=== PATIENT | female | born 1975 | race American Indian/Alaskan Native ===

== ENCOUNTER 2017-01-24 10:48 | Emergency (ER) | payer OTHER ==
[2017-01-24 11:12] VITALS: O2SAT 100
[2017-01-24 12:15] LABS: BASO % 0.6 % (0.0-2.0); EOS # 0.1 K/uL (0.0-0.7); EOS % 1.5 % (0.0-4.0); LYMPH # 2.8 K/uL (1.0-4.3); LYMPH % 36.8 % (20.0-40.0); MEAN CELL VOLUME 83.7 fL (81.0-99.0); MEAN CORPUSCULAR HEMOGLOBIN 26.9 pg (27.0-31.0); MEAN CORPUSCULAR HGB CONC 32.1 g/dL (33.0-37.0); MEAN PLATELET VOLUME 7.3 fL (7.2-11.7); MONO # 0.5 K/uL (0.0-0.8); MONO % 7.3 % (0.0-10.0); NRBC % 0.1 % (0.0-2.0); RED CELL DISTRIBUTION WIDTH 14.3 % (11.5-14.5); WHITE BLOOD COUNT 7.5 K/uL (4.8-10.8)
[2017-01-24 12:24] LABS: CHLORIDE 98 mmol/L (98-107); POTASSIUM 4.5 mmol/L (3.6-5.2); SODIUM 131 mmol/L (132-148)
[2017-01-24 12:26] LABS: GFR AFRICAN-AMERICAN > 60
[2017-01-24 12:27] LABS: ALB/GLOB RATIO 1.1 (1.0-2.1); ALKALINE PHOSPHATASE 59 U/L (38-126); ALT/SGPT 12 U/L (9-52); AST/SGOT 26 U/L (14-36); BILIRUBIN,TOTAL 0.8 mg/dL (0.2-1.3); BLOOD UREA NITROGEN 9 mg/dL (7-17); CARBON DIOXIDE 25 mmol/L (22-30); GLUCOSE,RANDOM 88 mg/dL (65-105); TOTAL PROTEIN 7.7 g/dL (6.3-8.3)
[2017-01-24 12:28] LABS: CALCIUM 8.3 mg/dl (8.6-10.4)
[2017-01-24 12:29] LABS: URINE BILIRUBIN NEGATIVE (NEGATIVE); URINE BLOOD NEGATIVE (NEGATIVE); URINE COLOR Colorless (YELLOW); URINE GLUCOSE (UA) NORMAL (Normal); URINE KETONE NEGATIVE (NEGATIVE); URINE LEUKOCYTE ESTERASE NEG Leu/uL (Negative); URINE PROTEIN NEGATIVE (NEGATIVE); URINE UROBILINOGEN NORMAL mg/dL (0.2-1.0)
--- NOTE | 2017-01-24 13:44 | C.PDOC ---
History Of Present Illness 41 y/o female presents to the ED with complains of urinary frequency x1 week with associated intermittent lower back pain radiating to sides and lower abdomen. Pt also reports intermittent right sided chest pain last night, currently resolved. Pt denies dysuria, hematuria, urgency, vaginal bleeding or discharge, nausea, vomiting, diarrhea, fever, chills, SOB, or any other complaints. Time Seen by Provider: 01/24/17 12:30 Chief Complaint (Nursing): Chest Pain History Per: Patient History/Exam Limitations: no limitations Onset/Duration Of Symptoms: Days Current Symptoms Are (Timing): Still Present Severity: Moderate Modifying Factors: None Alleviating Factors: None Recent travel outside of the [place]: No Past Medical History Reviewed: Historical Data, Nursing Documentation, Vital Signs Vital Signs: Last Vital Signs Temp 98.3 F 01/24/17 15:47 Pulse 66 01/24/17 15:47 Resp 20 01/24/17 15:47 BP 124/80 01/24/17 15:47 Pulse Ox 100 01/24/17 15:47 - Medical History PMH: HTN Surgical History: Endoscopy (09/28/2015) Family History: States: Unknown Family Hx - Social History Hx Tobacco Use: No Hx Alcohol Use: No Hx Substance Use: No - Immunization History Hx Tetanus Toxoid Vaccination: No Hx Influenza Vaccination: No Hx Pneumococcal Vaccination: No Review Of Systems Except As Marked, All Systems Reviewed And Found Negative. Constitutional: Negative for: Fever, Chills Cardiovascular: Negative for: Chest Pain Respiratory: Negative for: Shortness of Breath Gastrointestinal: Positive for: Abdominal Pain. Negative for: Nausea, Vomiting , Diarrhea Genitourinary: Positive for: Frequency. Negative for: Dysuria, Hematuria, Vaginal Discharge, Vaginal Bleeding Musculoskeletal: Positive for: Back Pain Physical Exam - Physical Exam Appears: Non-toxic, No Acute Distress Skin: Warm, Dry, No Rash Head: Atraumatic, Normacephalic Nose: Normal Oral Mucosa: Moist Neck: Normal, Normal ROM, Supple Chest: Symmetrical Cardiovascular: Rhythm Regular, No Murmur Respiratory: Normal Breath Sounds, No Rales, No Rhonchi, No Wheezing Gastrointestinal/Abdominal: Normal Exam, Soft, No Tenderness Back: Normal Inspection, No CVA Tenderness Extremity: Normal ROM Extremity: Bilateral: Atraumatic Neurological/Psych: Oriented x3, Normal Speech ED Course And Treatment - Laboratory Results Result Diagrams: 01/24/17 12:10 01/24/17 12:10 ECG: Interpreted By Me, Viewed By Me ECG Rhythm: Sinus Rhythm ECG Interpretation: Normal Rate From EC (bpm) O2 Sat by Pulse Oximetry: 100 (room air) Pulse Ox Interpretation: Normal Medical Decision Making Medical Decision Makin pm abdomen re-examined. no pain on palpation, to to be discharged with pmd and sales program coordinator f/u Disposition Counseled Patient/Family Regarding: Studies Performed, Diagnosis, Need For Followup - Disposition Disposition: HOME/ ROUTINE Disposition Time: 15:36 Condition: STABLE Additional Instructions: Follow up with your PMD Dr Edmondson and also with your brim and crown presser., Dr Archibald. Return to ER for any worsening symptoms. Tylenol or motrin for pain. Instructions: Polyuria (ED) Forms: General Discharge Instructions - Clinical Impression Clinical Impression: Polyuria, Lower abdominal pain - PA / PAPER NOVELTY MAKER / Resident Statement MD/DO has reviewed & agrees with the documentation as recorded. - Scribe Statement The provider has reviewed the documentation as recorded by the Ronaldibanisha Dunn All medical record entries made by the Ronaldibanisha were at my direction and personally dictated by me. I have reviewed the chart and agree that the record accurately reflects my personal performance of the history, physical exam, medical decision making, and the department course for this patient. I have also personally directed, reviewed, and agree with the discharge instructions and disposition.
[2017-01-24 15:48] VITALS: BP 124/80; PULSE 66; RESP 20; TEMP 98.3
== END 2017-01-24 15:47 | disposition home or self-care (01) ==
LOC: C.ER 10:48
DX: R35.8 Other polyuria (principal); R10.30 Lower abdominal pain, unspecified

== ENCOUNTER 2019-02-13 14:50 | Emergency (ER) | payer MEDICAID, OTHER ==
[2019-02-13 15:04] VITALS: O2SAT 100
--- NOTE | 2019-02-13 15:55 | C.PDOC ---
History Of Present Illness Patient is a 44 year old female who presents to the ED c/o swelling and pain to the bilateral legs for the past month. Patient states that her left leg pain is worse than the right and she also reports having pain in her right shoulder that makes it difficult to move. She states that she has been seeing Dr. Edmondson who prescribed Lasix and a "CT scan" of her legs, but she has not had the chance to follow up outpatient. She reports that her legs begin to hurt after walking just a block and states that she gets SOB when climbing stairs and feels like her right arm is swollen. She denies any injuries, CP, nausea, or vomiting. Time Seen by Provider: 02/13/19 15:29 Chief Complaint (Nursing): Upper Extremity Problem/Injury History Per: Patient History/Exam Limitations: no limitations Onset/Duration Of Symptoms: Other (one month ) Current Symptoms Are (Timing): Still Present Recent travel outside of the [place]: No Additional History Per: Patient Past Medical History Reviewed: Historical Data, Nursing Documentation, Vital Signs Vital Signs: Last Vital Signs Temp 99.2 F 02/13/19 14:59 Pulse 74 02/13/19 14:59 Resp 19 02/13/19 14:59 BP 123/88 02/13/19 14:59 Pulse Ox 100 02/13/19 14:59 Primary Care Provider: Dragan Edmondson - Medical History PMH: CHF, HTN Surgical History: Endoscopy (09/28/2015) Family History: States: Unknown Family Hx - Social History Hx Tobacco Use: No Hx Alcohol Use: No Hx Substance Use: No - Immunization History Hx Tetanus Toxoid Vaccination: No Hx Influenza Vaccination: No Hx Pneumococcal Vaccination: No Review Of Systems Respiratory: Positive for: Shortness of Breath Gastrointestinal: Negative for: Nausea, Vomiting Musculoskeletal: Positive for: Arm Pain (pain in right shoulder and swelling to right arm ), Leg Pain (swelling and pain in legs) Physical Exam - Physical Exam Appears: Non-toxic, No Acute Distress Skin: Warm, Dry Head: Atraumatic, Normacephalic Eye(s): bilateral: Normal Inspection Neck: Normal ROM, Supple Chest: Symmetrical, No Deformity Cardiovascular: Rhythm Regular, No Murmur Respiratory: Normal Breath Sounds, No Rales, No Rhonchi, No Wheezing Gastrointestinal/Abdominal: Soft, No Tenderness, Other (obese ) Extremity: Normal ROM (full ROM in shoulders ), Tenderness (left calf tender to palpation ), No Pedal Edema (significant ), Capillary Refill <2 Sec, No Swelling (arms ) Pulses: Left Dorsalis Pedis: Normal, Right Dorsalis Pedis: Normal Neurological/Psych: Oriented x3, Normal Cranial Nerves, Normal Motor, Normal Sensation, Normal Reflexes ED Course And Treatment - Laboratory Results Result Diagrams: 02/13/19 15:57 02/13/19 15:57 Lab Interpretation: Normal O2 Sat by Pulse Oximetry: 100 (on RA) Pulse Ox Interpretation: Normal - CT Scan/US right shoulder Other Rad Studies (CT/US): Interpreted By Me CT/US Interpretation: No evidence of dislocation or fracture venous doppler bilateral lower extremities Other Rad Studies (CT/US): Read By Radiologist, Radiology Report Reviewed CT/US Interpretation: No evidence of DVT Medical Decision Making Medical Decision Making: Plan: Labs UA Venous Duplex Disposition Counseled Patient/Family Regarding: Studies Performed, Diagnosis, Need For Followup - Disposition Referrals: Dragan Edmondson MD [Medical Doctor] - Disposition: HOME/ ROUTINE Disposition Time: 17:20 Condition: STABLE Instructions: Shoulder Pain (DC), Swelling Forms: [facility] (Bengali) - Clinical Impression Clinical Impression: Peripheral edema, Shoulder pain, right - Scribe Statement The provider has reviewed the documentation as recorded by the Armin León All medical record entries made by the Ronaldibanisha were at my direction and personally dictated by me. I have reviewed the chart and agree that the record accurately reflects my personal performance of the history, physical exam, medical decision making, and the department course for this patient. I have also personally directed, reviewed, and agree with the discharge instructions and disposition.
[2019-02-13 16:08] LABS: BASO % 0.5 % (0.0-2.0); EOS # 0.1 K/uL (0.0-0.7); HEMOGLOBIN 12.7 g/dL (11.0-16.0); LYMPH # 2.3 K/uL (1.0-4.3); LYMPH % 30.5 % (20.0-40.0); MEAN CELL VOLUME 83.9 fL (81.0-99.0); MEAN CORPUSCULAR HEMOGLOBIN 27.8 pg (27.0-31.0); MEAN CORPUSCULAR HGB CONC 33.1 g/dL (33.0-37.0); MEAN PLATELET VOLUME 7.5 fL (7.2-11.7); MONO # 0.6 K/uL (0.0-0.8); MONO % 8.2 % (0.0-10.0); NEUT # 4.5 K/uL (1.8-7.0); NEUT % 59.8 % (50.0-75.0); NRBC % 0.1 % (0.0-2.0); RBC 4.56 Mil/uL (3.80-5.20); WHITE BLOOD COUNT 7.6 K/uL (4.8-10.8)
[2019-02-13 16:10] LABS: SQUAMOUS EPITHIAL < 1 /hpf (0-5); URINE BACTERIA RARE (<OCC); URINE BILIRUBIN NEGATIVE (NEGATIVE); URINE BLOOD NEGATIVE (NEGATIVE); URINE CLARITY Clear (Clear); URINE COLOR Yellow (YELLOW); URINE GLUCOSE (UA) NORMAL (Normal); URINE LEUKOCYTE ESTERASE NEG Leu/uL (Negative); URINE PROTEIN NEGATIVE (NEGATIVE); URINE UROBILINOGEN NORMAL mg/dL (0.2-1.0)
[2019-02-13 16:15] LABS: HCG,QUALITATIVE URINE NEGATIVE (NEGATIVE)
[2019-02-13 16:18] LABS: ALB/GLOB RATIO 1.2 (1.0-2.1); ALBUMIN 4.3 g/dL (3.5-5.0); ALT/SGPT 13 U/L (9-52); AST/SGOT 16 U/L (14-36); BLOOD UREA NITROGEN 13 mg/dL (7-17); CALCIUM 9.6 mg/dl (8.6-10.4); GFR NON-AFRICAN AMERICAN > 60
[2019-02-13 16:25] LABS: B-TYPE NATRIURETIC PEPTIDE 41.2 pg/mL (0-450)
[2019-02-13 17:27] VITALS: BP 149/81; PULSE 70; RESP 18; TEMP 98.5
--- NOTE | 2019-02-14 11:24 | VASCLAB ---
Date of service: 02/13/2019 PROCEDURE: Lower Extremity Venous Duplex Exam. HISTORY: leg swelling PRIORS: None. TECHNIQUE: Bilateral common femoral, femoral, popliteal and posterior tibial, peroneal and great saphenous veins were evaluated. Flow was assessed with color Doppler, compressibility, assessment of phasic flow and augmentation response. Report prepared by Brayden Germain, ADITHYA, RVT FINDINGS: RIGHT: 1. Common Femoral Vein: 1.1. Compressibility - Fully compressible: Thrombus - None : Flow - Phasic: Augmentation -Normal: Reflux - None. 2. Femoral Vein: 2.1. Compressibility - Fully compressible: Thrombus - None : Flow - Phasic: Augmentation -Normal: Reflux - None. 3. Popliteal Vein: 3.1. Compressibility - Fully compressible: Thrombus - None : Flow - Phasic: Augmentation -Normal: Reflux - None. 4. Posterior Tibial Vein: 4.1. Compressibility - Fully compressible: Thrombus - None: Flow - Phasic: Augmentation -Normal: Reflux - None. 5. Peroneal Vein: 5.1. Compressibility - Fully compressible: Thrombus - None: Flow - Phasic: Augmentation -Normal: Reflux - None. 6. Great Saphenous Vein: 6.1. Compressibility - Fully compressible: Thrombus - None: Flow - Phasic: Augmentation - Normal: Reflux - None. LEFT: 1. Common Femoral Vein: 1.1. Compressibility - Fully compressible: Thrombus - None: Flow - Phasic: Augmentation -Normal: Reflux - None. 2. Femoral Vein: 2.1. Compressibility - Fully compressible: Thrombus - None: Flow - Phasic: Augmentation -Normal: Reflux - None. 3. Popliteal Vein: 3.1. Compressibility - Fully compressible: Thrombus - None : Flow - Phasic: Augmentation -Normal: Reflux - None. 4. Posterior Tibial Vein: 4.1. Compressibility - Fully compressible: Thrombus - None: Flow - Phasic: Augmentation -Normal: Reflux - None. 5. Peroneal Vein: 5.1. Compressibility - Fully compressible: Thrombus - None: Flow - Phasic: Augmentation -Normal: Reflux - None. 6. Great Saphenous Vein: 6.1. Compressibility - Fully compressible: Thrombus - None: Flow - Phasic: Augmentation - Normal: Reflux - None. OTHER FINDINGS: Right: None significant. Left: None significant. IMPRESSION: Right: No evidence of deep or superficial vein thrombosis of the right lower extremity. Normal valve function noted of the right side. Left: No evidence of deep or superficial vein thrombosis of the left lower extremity. Normal valve function noted of the left side.
--- NOTE | 2019-02-15 14:18 | RAD ---
Date of service: 02/13/2019 PROCEDURE: Radiographs of the Right Shoulder HISTORY: Shoulder pain. No injury. COMPARISON: No prior. TECHNIQUE: 3 views obtained. FINDINGS: BONES: Normal. No fracture. JOINTS: Normal. Glenohumeral and acromioclavicular joints preserved. No osteoarthritis. SOFT TISSUES: Normal. OTHER FINDINGS: None. IMPRESSION: No evidence of acute displaced fracture nor dislocation
== END 2019-02-13 17:27 | disposition home or self-care (01) ==
LOC: C.ER 14:50
DX: R60.9 Edema, unspecified (principal); M25.511 Pain in right shoulder